=== PATIENT | male | born 1975 | race Caucasian/White ===

== ENCOUNTER 2017-04-06 12:53 | Emergency (ER) | payer OTHER ==
[~2017-04-06] VITALS: Ht 193 cm; Wt 97.5 kg
[2017-04-06] MEDS ORDERED: ADVIL200 MG PO (13:04)
[2017-04-06] MEDS ORDERED: KETOROLAC TROME10 MG PO (13:31)
[2017-04-06] MEDS ORDERED: METHYLPREDNISOLO4 M1 PO (13:31)
== END 2017-04-06 13:32 | disposition home or self-care (01) ==
LOC: ED 12:53
DX: G89.29 Other chronic pain (principal); M25.511 Pain in right shoulder; Z87.891 Personal history of nicotine dependence; Z90.49 Acquired absence of other specified parts of digestive tract; Z79.891 Long term (current) use of opiate analgesic; Z88.0 Allergy status to penicillin
CPT/HCPCS: 99283